=== PATIENT | male | born 1985 | race Caucasian/White ===

== ENCOUNTER 2022-09-11 03:34 | Emergency (ER) | payer OTHER ==
[~2022-09-11] VITALS: Ht 157.5 cm; Wt 60.0 kg
[2022-09-11] MEDS ORDERED: ACETAMINOPHEN 500 MG TABLET PO ONE (06:30)
[2022-09-11 06:37] VITALS: BP 133/83
== END 2022-09-11 06:39 | disposition home or self-care (01) ==
LOC: EMS 03:44
DX: S00.83XA Contusion of other part of head, initial encounter (principal); M25.511 Pain in right shoulder; Y04.8XXA Assault by other bodily force, initial encounter; Y93.89 Activity, other specified; Y92.89 Other specified places as the place of occurrence of the external cause; Y99.8 Other external cause status
CPT/HCPCS: 99283